=== PATIENT | female | born 1985 | race Caucasian/White ===

== ENCOUNTER 2021-02-04 20:34 | Emergency (ER) | payer BC, OTHER ==
[~2021-02-04 20:34] MED LIST: ASPIRIN CHEWABL81 MG PO; CATAPRES 0.1MG0.1 MG PO; CORTISPORIN OTI10 M1 EARRT; DIFLUCAN150 MG PO; EPIPEN 2-P0.3 MG/0.3 INJ; GABAPENTIN300 MG PO; LOPRESSOR 25 MG25 MG PO; LOPRESSOR 50 MG50 MG PO; LOSARTAN-HCTZ1 EAC2 PO; MEDROL DOSEPAK 24 MG PO; MULTIVITAMINS1 EAC1 PO; NORVASC10 MG PO; PERCOCET 7.5-31 EACH PO; PREVACID30 MG PO; STOOL SOFTENER250 MG PO; TAMIFLU75 MG PO; VITAMIN D35000 UNI1 PO; ZOFRAN4 MG PO; ZYRTEC10 M3 PO; ZYRTEC10 MG PO
[2021-02-04] MEDS ORDERED: IBUPROFEN800 MG PO (21:52)
== END 2021-02-04 22:31 | disposition home or self-care (01) ==
LOC: ER1 20:34
DX: S60.212A Contusion of left wrist, initial encounter (principal); Z90.49 Acquired absence of other specified parts of digestive tract; X58.XXXA Exposure to other specified factors, initial encounter; Y92.009 Unspecified place in unspecified non-institutional (private) residence as the place of occurrence of the external cause
CPT/HCPCS: 29125; 73090; 73110; 99283

== ENCOUNTER → 2021-04-15 | Outpatient (CLI) | payer BC, OTHER ==
[~2021-04-15] MED LIST changes: +IBUPROFEN800 MG PO
== END ==
LOC: LAB 08:55
DX: Z32.00 Encounter for pregnancy test, result unknown (principal)
CPT/HCPCS: 36415; 84702

== ENCOUNTER → 2021-04-18 | Outpatient (CLI) | payer BC, OTHER | LOC: LAB 07:29 | DX: O09.811 Supervision of pregnancy resulting from assisted reproductive technology, first trimester (principal) | CPT/HCPCS: 36415; 84702 ==

== ENCOUNTER → 2021-04-21 | Outpatient (CLI) | payer BC, OTHER | LOC: LAB 07:52 | DX: O09.811 Supervision of pregnancy resulting from assisted reproductive technology, first trimester (principal) | CPT/HCPCS: 36415; 84702 ==

== ENCOUNTER 2021-04-27 05:11 | Emergency (ER) | payer BC, OTHER ==
[2021-04-27 07:01] LABS: HEMOGLOBIN 14.5 gm/dl (12.3-15.3); RED BLOOD COUNT 4.62 M/UL (4.00-5.10); WHITE BLOOD COUNT 11.7 K/UL (4.5-11.0)
[2021-04-27 07:14] LABS: BUN/CREATININE RATIO 13 (0-10)
== END 2021-04-27 09:54 | disposition home or self-care (01) ==
LOC: ER1 05:11
PROVIDERS: Family Medicine
DX: O03.9 Complete or unspecified spontaneous abortion without complication (principal); E11.9 Type 2 diabetes mellitus without complications; Z88.8 Allergy status to other drugs, medicaments and biological substances
CPT/HCPCS: 76817; 80053; 84702; 85025; 86900; 86901; 99284

== ENCOUNTER 2021-05-02 12:10 | Emergency (ER) | payer BC, OTHER ==
[2021-05-02 13:38] LABS: HEMOGLOBIN 13.6 gm/dl (12.3-15.3); RED BLOOD COUNT 4.38 M/UL (4.00-5.10); WHITE BLOOD COUNT 7.3 K/UL (4.5-11.0)
[2021-05-02 14:02] LABS: BUN/CREATININE RATIO 22 (0-10)
== END 2021-05-02 15:00 | disposition home or self-care (01) ==
LOC: ER1 12:10
PROVIDERS: Physician Assistant
DX: O03.9 Complete or unspecified spontaneous abortion without complication (principal); Z90.49 Acquired absence of other specified parts of digestive tract; Z88.8 Allergy status to other drugs, medicaments and biological substances; Z79.899 Other long term (current) drug therapy
CPT/HCPCS: 80053; 81001; 84702; 85025; 96374; 96375; 99284; J2270; J2405; J7030

== ENCOUNTER → 2021-07-28 | Outpatient (CLI) | payer BC | LOC: LAB 07:46 | DX: N97.1 Female infertility of tubal origin (principal) | CPT/HCPCS: 36415; 82670 ==

== ENCOUNTER → 2021-08-18 | Outpatient (CLI) | payer BC | LOC: LAB 08:15 | DX: Z32.00 Encounter for pregnancy test, result unknown (principal) | CPT/HCPCS: 84702 ==

== ENCOUNTER → 2021-08-22 | Outpatient (CLI) | payer BC | LOC: LAB 08:48 | DX: O09.01 Supervision of pregnancy with history of infertility, first trimester (principal) | CPT/HCPCS: 36415; 84702 ==

== ENCOUNTER → 2021-08-25 | Outpatient (CLI) | payer BC | LOC: LAB 08:55 | DX: O09.01 Supervision of pregnancy with history of infertility, first trimester (principal); Z3A.00 Weeks of gestation of pregnancy not specified | CPT/HCPCS: 36415; 84702 ==

== ENCOUNTER → 2021-08-27 | Outpatient (CLI) | payer BC | LOC: LAB 07:29 | DX: O09.01 Supervision of pregnancy with history of infertility, first trimester (principal) | CPT/HCPCS: 36415; 84702 ==

== ENCOUNTER 2021-08-31 20:34 | Observation (INO) | payer BC ==
[2021-08-31 21:30] LABS: HEMOGLOBIN 13.5 gm/dl (12.3-15.3); RED BLOOD COUNT 4.39 M/UL (4.00-5.10); WHITE BLOOD COUNT 9.8 K/UL (4.5-11.0)
[2021-08-31 21:44] LABS: BUN/CREATININE RATIO 20 (0-10)
[2021-09-01 06:48] LABS: WHITE BLOOD COUNT 8.9 K/UL (4.5-11.0)
[2021-09-01 06:54] LABS: RED BLOOD COUNT 3.93 M/UL (4.00-5.10)
== END 2021-09-01 09:37 | disposition home or self-care (01) ==
LOC: ER1 20:34 → CDU 22:50 → OB 09-01 00:56
PROVIDERS: Nurse Practitioner; ADMIT Obstetrics & Gynecology
DX: O26.851 Spotting complicating pregnancy, first trimester (principal); O10.911 Unspecified pre-existing hypertension complicating pregnancy, first trimester; O24.111 Pre-existing type 2 diabetes mellitus, in pregnancy, first trimester; E11.9 Type 2 diabetes mellitus without complications; O99.281 Endocrine, nutritional and metabolic diseases complicating pregnancy, first trimester; E28.2 Polycystic ovarian syndrome; O99.841 Bariatric surgery status complicating pregnancy, first trimester; Z88.8 Allergy status to other drugs, medicaments and biological substances; Z79.84 Long term (current) use of oral hypoglycemic drugs; Z79.899 Other long term (current) drug therapy; Z3A.01 Less than 8 weeks gestation of pregnancy
CPT/HCPCS: 76817; 80053; 81001; 82962; 84702; 85025; 86850; 86900; 86901; 96361; 96365; 99285; G0378; J7120

== ENCOUNTER 2021-11-23 23:55 | Emergency (ER) | payer BC ==
[2021-11-24 02:14] LABS: HEMOGLOBIN 12.2 gm/dl (12.3-15.3); RED BLOOD COUNT 4.07 M/UL (4.00-5.10)
[2021-11-24 02:35] LABS: BUN/CREATININE RATIO 19 (0-10)
== END 2021-11-24 04:07 | disposition home or self-care (01) ==
LOC: ER1 23:55
PROVIDERS: Physician Assistant
DX: O99.891 Other specified diseases and conditions complicating pregnancy (principal); R10.2 Pelvic and perineal pain; O24.112 Pre-existing type 2 diabetes mellitus, in pregnancy, second trimester; O10.912 Unspecified pre-existing hypertension complicating pregnancy, second trimester; Z88.8 Allergy status to other drugs, medicaments and biological substances; Z3A.18 18 weeks gestation of pregnancy
CPT/HCPCS: 80053; 81001; 85025; 87086; 99284

== ENCOUNTER 2022-02-08 20:10 | Outpatient (CLI) | payer BC | END 2022-02-08 21:31 | disposition home or self-care (01) | LOC: GENOP 20:10 | DX: O36.8130 Decreased fetal movements, third trimester, not applicable or unspecified (principal); O10.913 Unspecified pre-existing hypertension complicating pregnancy, third trimester; O24.113 Pre-existing type 2 diabetes mellitus, in pregnancy, third trimester; O99.213 Obesity complicating pregnancy, third trimester; E66.01 Morbid (severe) obesity due to excess calories; Z88.8 Allergy status to other drugs, medicaments and biological substances; Z91.048 Other nonmedicinal substance allergy status; Z79.84 Long term (current) use of oral hypoglycemic drugs; Z3A.29 29 weeks gestation of pregnancy | CPT/HCPCS: G0463 ==

== ENCOUNTER 2022-03-04 23:57 | Outpatient (CLI) | payer BC | END 2022-03-06 09:08 | disposition home or self-care (01) | LOC: GENOP 23:57 → OB 03-05 10:34 → GENOP 03-06 09:08 | DX: O47.03 False labor before 37 completed weeks of gestation, third trimester (principal); O24.113 Pre-existing type 2 diabetes mellitus, in pregnancy, third trimester; O10.913 Unspecified pre-existing hypertension complicating pregnancy, third trimester; O99.213 Obesity complicating pregnancy, third trimester; E66.01 Morbid (severe) obesity due to excess calories; Z79.84 Long term (current) use of oral hypoglycemic drugs; Z79.899 Other long term (current) drug therapy; Z20.822 Contact with and (suspected) exposure to COVID-19; Z3A.32 32 weeks gestation of pregnancy | CPT/HCPCS: 59025; 82962; 96361; 96365; 96372; J0696; J0702; U0002 ==

== ENCOUNTER 2022-03-27 22:50 | Outpatient (CLI) | payer BC | END 2022-03-28 01:20 | disposition home or self-care (01) | LOC: GENOP 22:50 | DX: O10.013 Pre-existing essential hypertension complicating pregnancy, third trimester (principal); Z3A.35 35 weeks gestation of pregnancy; O26.893 Other specified pregnancy related conditions, third trimester; R10.9 Unspecified abdominal pain | CPT/HCPCS: 81001; G0463 ==

== ENCOUNTER 2022-04-19 19:46 | Emergency (ER) | payer BC ==
[~2022-04-19 19:46] MED LIST changes: +DOCUSATE SODIU250 MG PO; +FERROUS SULFAT325 MG PO; +FLONASE 0.05% N16 GM; +GLUCOPHAGE XR500 M1 PO; +HYDROCODONE-AC1 EACH PO; +IBUPROFEN600 MG PO; +LABETALOL HCL200 MG PO
[2022-04-19 20:35] LABS: HEMOGLOBIN 11.3 gm/dl (12.3-15.3); RED BLOOD COUNT 4.1 M/UL (4.00-5.10); WHITE BLOOD COUNT 10.4 K/UL (4.5-11.0)
[2022-04-19 20:54] LABS: BUN/CREATININE RATIO 24 (0-10)
== END 2022-04-19 22:44 | disposition home or self-care (01) ==
LOC: ER1 19:46
PROVIDERS: Physician Assistant Medical
DX: O99.892 Other specified diseases and conditions complicating childbirth (principal); M79.652 Pain in left thigh; I10 Essential (primary) hypertension; E11.9 Type 2 diabetes mellitus without complications; Z88.8 Allergy status to other drugs, medicaments and biological substances
CPT/HCPCS: 80053; 85025; 85610; 85730; 93971; 99284